=== PATIENT | female | born 1995 | race Caucasian/White ===

== ENCOUNTER → 2024-02-21 13:46 | Outpatient (CLI) | payer OTHER, SELFPAY | PROVIDERS: PCP Family Medicine; Visit Provider Family Medicine | DX: R31.9 Hematuria, unspecified (principal) | CPT/HCPCS: 87077; 87086 ==

== ENCOUNTER → 2024-04-28 15:12 | Outpatient (CLI) | payer OTHER, SELFPAY | PROVIDERS: PCP Family Medicine; Visit Provider Nurse Practitioner Family | DX: R30.0 Dysuria (principal) | CPT/HCPCS: 87077; 87086; 87186 ==

== ENCOUNTER → 2024-05-06 13:07 | Outpatient (CLI) | payer OTHER, SELFPAY ==
--- NOTE | 2024-05-06 13:08 | DI.US.S_ITS ---
PROCEDURE: US OB <= 14 WEEKS FETUS INDICATIONS: DATING OUTSIDE/PRIOR DATING DATA: Last menstrual period (LMP): 03/05/2024 LMP-based estimated date of delivery (NICO): 12/10/2024 First dating scan (date and location): 05/06/2024 Estimated date of delivery (NICO) from first dating scan: 12/09/2024 The calculations are made using the working NICO of 12/10/2024. TECHNIQUE: Real-time scanning was performed of the fetus and maternal pelvic organs, with image documentation. Endovaginal scanning was also performed to better visualize the fetus and maternal ovaries. COMPARISON: None. FINDINGS: Embryo: Single intrauterine gestational sac is seen with fetus and yolk sac seen. [place]-rump length measures 2.3 cm. Estimated gestational age is 9 weeks, 0 day. Heart rate: 180 beats per minute. Small perigestational hemorrhage is seen measures 1.0 x 0.8 x 0.3 cm in size. Maternal organs: Left ovary is not visualized. Probable small corpus luteum in right ovary is seen IMPRESSION: 1. Single live intrauterine gestation with fetus and yolk sac seen. heart rate is 180 beats per minute. Estimated gestational age based on current study is 9 weeks, 0 day. 2. Small perigestational hematoma as above. 3. Probable small corpus luteum in right ovary. Left ovary is not visualized. No adnexal mass. We strive to produce accurate, complete, and clear reports of imaging services. To assist us in improving patient care, this report was composed using standard report templates and voice recognition software. Therefore, it may contain abnormal punctuation, insertions and/or omissions. Occasional wrong-word or sound-alike substitutions may occur. Though we review the report and make efforts to correct it, we do recommend that the report be read carefully in proper context to recognize any text inaccuracies. Dictated by: Connor Montilla M.D. on 05/06/2024 at 18:12 Approved by: Connor Montilla M.D. on 05/06/2024 at 18:14
== END ==
PROVIDERS: PCP Family Medicine; Referring Provider Family Medicine; Visit Provider Family Medicine
DX: O46.8X1 Other antepartum hemorrhage, first trimester (principal); Z3A.09 9 weeks gestation of pregnancy
CPT/HCPCS: 76801; 76817

== ENCOUNTER → 2024-05-26 16:27 | Outpatient (CLI) | payer OTHER, SELFPAY ==
[2024-05-26 17:51] LABS: Natera Collection Specimen Collected
[2024-05-26 18:36] LABS: Appearance Urine UA CLEAR; Bilirubin Urine UA NEGATIVE (NEGATIVE); Color Urine UA YELLOW; Glucose Urine UA NEGATIVE (Negative); Ketones Urine UA NEGATIVE (NEGATIVE); Leukocyte Esterase Urine UA NEGATIVE (NEGATIVE); Nitrite Urine UA NEGATIVE (Negative); Occult Blood Urine UA TRACE-INTACT (Negative); Protein Urine UA NEGATIVE (Negative); Specific Gravity Urine UA <=1.005 (1.000-1.035); Urobilinogen Urine UA 0.2 E.U./dL (0.2)
== END ==
PROVIDERS: PCP Family Medicine; Referring Provider Family Medicine; Visit Provider Family Medicine
DX: Z34.00 Encounter for supervision of normal first pregnancy, unspecified trimester (principal)
CPT/HCPCS: 36415; 81003; 87086

== ENCOUNTER → 2024-06-24 13:19 | Outpatient (CLI) | payer OTHER, SELFPAY ==
[2024-06-24 17:13] LABS: Urine Chlamydia NOT DETECTED; Urine N gonorrhoeae NOT DETECTED
== END ==
PROVIDERS: PCP Family Medicine; Visit Provider Obstetrics & Gynecology
DX: Z34.02 Encounter for supervision of normal first pregnancy, second trimester (principal); Z3A.15 15 weeks gestation of pregnancy
CPT/HCPCS: 87491; 87591

== ENCOUNTER → 2024-06-24 13:58 | Outpatient (CLI) | payer OTHER, SELFPAY ==
[2024-06-24 14:23] LABS: Add Manual Diff / Slide Review NO; Basophils Absolute Auto 0 /uL (0-100); Basophils Percent Auto 0.3 % (0-2); Eosinophils Absolute Auto 100 /uL (0-450); Eosinophils Percent Auto 0.7 % (2-4); Hematocrit 36.9 % (36-46); Hemoglobin 12.4 g/dL (12.0-16.0); Lymphocytes Absolute Auto 2300 /uL (1100-4500); Mean Corpuscular HGB Conc 33.6 % (30-36); Mean Corpuscular Hemoglobin 31.4 PG (26-34); Mean Corpuscular Volume 93.3 fL (80-100); Monocytes Absolute Auto 800 /uL (0-900); Monocytes Percent Auto 5.6 % (3-14); Neutrophils Absolute Auto 10400 /uL (1500-7000); Neutrophils Percent Auto 76.4 % (50-75); Platelet Count 386 X10^3/uL (150-400); Red Blood Cell Count 3.95 X10^6/uL (4.0-5.2); Red Cell Distribution Width 13.4 % (11.6-14.8); White Blood Cell Count 13.6 X10^3/uL (4.5-11.0)
[2024-06-25 19:16] LABS: Hepatitis B Surface Antigen NEGATIVE s/c (NEGATIVE); Rubella Antibody IgG 5.9 IU/mL (>15)
[2024-06-25 19:32] LABS: HIV 1 & 2 Ab/Ag 4th Gen Combo NEGATIVE (NEGATIVE); Hep C Virus Ab w/Reflex Quant NEGATIVE s/c (NEGATIVE)
[2024-06-26 05:37] LABS: RPR Screen Non Reactive (Non Reactive)
[2024-06-26 08:13] LABS: Varicella IgG Antibody Reactive (Non Reactive)
== END ==
PROVIDERS: PCP Family Medicine; Referring Provider Obstetrics & Gynecology; Visit Provider Obstetrics & Gynecology
DX: Z34.02 Encounter for supervision of normal first pregnancy, second trimester (principal); Z3A.15 15 weeks gestation of pregnancy
CPT/HCPCS: 36415; 80055; 86787; 86803; 86850; 86900; 86901; 87389; 87491; 87591

== ENCOUNTER → 2024-07-23 13:54 | Outpatient (CLI) | payer OTHER, SELFPAY ==
--- NOTE | 2024-07-23 13:55 | DI.US.S_ITS ---
PROCEDURE: US OB >= 14 WEEKS FETUS INDICATIONS: 20 week anatomy OUTSIDE/PRIOR DATING DATA: Last menstrual period (LMP): 03/05/2024 LMP-based estimated date of delivery (NICO): 12/10/2024 First dating scan (date and location): 05/06/2024 Estimated date of delivery (NICO) from first dating scan: 12/09/2024 The calculations are made using the working NICO of 12/10/2024 TECHNIQUE: Real-time scanning was performed of the fetus, with image documentation and biometric measurements. Endovaginal scanning: Not performed COMPARISON: [facility], OB <= 14 WEEKS FETUS, 05/06/2024, 13:32. FINDINGS: General: A single living intrauterine gestation is present. Presentation: Transverse with head towards maternal left side Placenta: Placental position is posterior, without previa. Amniotic fluid index: 15.1 cm, normal range is 5-24 cm. Single deepest vertical pocket is 3.9 cm. heart rate: 150 beats per minute. Maternal cervical canal: Closed and measures 6.6 cm long. Normal lower limit is 2.5 cm. biometrics: Biparietal diameter: 4.8 cm, 20 weeks, 3 days. Head circumference: 17.8 cm, 20 weeks, 2 days. Abdominal circumference: 15.7 cm, 20 weeks, 6 days. Femur length: 3.1 cm, 19 weeks, 3 days. Clinically estimated gestational age: 20 weeks, 0 day Composite gestational age from present scan: 20 weeks, 2 days Estimated weight and percentile: 339 g, 58% Anatomic survey: Neuro: Ventricles are non-dilated at less than 10 mm. Cisterna magna is normal at 3-11 mm. Cerebellum is normal in size and morphology. Nuchal skin fold: Normal at less than 6 mm between 14-21 weeks gestational age. Face: Nose and lips, facial profile are normal. Spine: No evidence for spina bifida. Heart: 4-chambered heart is present, with normal ventricular outflow tracts. Diaphragm: Diaphragm is intact. Stomach: Left-sided stomach is present. Kidneys: No hydronephrosis. Normal is less than 5 mm in 2nd trimester, less than 7 mm in 3rd trimester. Cord: 3-vessel cord has orthotopic insertion. Bladder: Normal in size. Extremities: All 4 extremities identified. IMPRESSION: 1. Single live intrauterine gestation with fetus in transverse presentation. heart rate is 150 beats per minute. Normal UMER at 15.1 cm. Cervix is closed and measures 6.6 cm in length. 2. Normal growth. Estimated weight is at 58%. 3. Normal anatomic survey. We strive to produce accurate, complete, and clear reports of imaging services. To assist us in improving patient care, this report was composed using standard report templates and voice recognition software. Therefore, it may contain abnormal punctuation, insertions and/or omissions. Occasional wrong-word or sound-alike substitutions may occur. Though we review the report and make efforts to correct it, we do recommend that the report be read carefully in proper context to recognize any text inaccuracies. Dictated by: Connor Montilla M.D. on 07/23/2024 at 23:05 Approved by: Connor Montilla M.D. on 07/23/2024 at 23:07
== END ==
PROVIDERS: PCP Family Medicine; Referring Provider Obstetrics & Gynecology; Visit Provider Obstetrics & Gynecology
DX: Z34.02 Encounter for supervision of normal first pregnancy, second trimester (principal); Z3A.20 20 weeks gestation of pregnancy
CPT/HCPCS: 76811

== ENCOUNTER → 2024-07-25 14:41 | Outpatient (CLI) | payer OTHER, SELFPAY ==
[2024-07-29 20:10] LABS: Gest Age on Col Date 20.3 weeks (.); Gestational Age EDD (.); Insulin Dep Diabetes No (.); OSBR Risk 1IN 4664 (.); Results Report (.); Test Results *Screen Negative* (.)
== END ==
PROVIDERS: PCP Family Medicine; Referring Provider Obstetrics & Gynecology; Visit Provider Obstetrics & Gynecology
DX: Z34.02 Encounter for supervision of normal first pregnancy, second trimester (principal); Z3A.20 20 weeks gestation of pregnancy
CPT/HCPCS: 36415; 82105

== ENCOUNTER → 2024-09-03 10:46 | Outpatient (CLI) | payer OTHER, SELFPAY ==
[2024-09-03 13:46] LABS: Hematocrit 34.5 % (36-46); Hemoglobin 11.6 g/dL (12.0-16.0)
[2024-09-03 14:04] LABS: GTT (PREG) 1 Hour PP 50gm Dose 90 mg/dL (76-139)
== END ==
PROVIDERS: PCP Family Medicine; Referring Provider Obstetrics & Gynecology; Visit Provider Obstetrics & Gynecology
DX: Z34.02 Encounter for supervision of normal first pregnancy, second trimester (principal); Z3A.26 26 weeks gestation of pregnancy
CPT/HCPCS: 82950; 85014; 85018

== ENCOUNTER 2024-10-24 19:36 | Observation (INO) | payer OTHER, SELFPAY ==
[2024-10-24] MEDS: LACTATED RINGERS 1,000 ML 1000 ML IV (20:30)
--- NOTE | 2024-10-24 21:35 | P.TNLD_ITS ---
Visit Information Visit Information Date of evaluation: 10/24/24 Primary OB Provider: Brigette Alvarez On-call OB Provider: Marlee Peraza Reason for Evaluation: Yes non-stress test Comments/Additional reasons for admission: 29 yo G1 at 33w2d here for decreased movement. [facility] Medical History (Updated 04/07/24 @ 10:39 by Sheela Arcos, RN) Encounter for fertility planning Surgical History (Updated 04/07/24 @ 10:39 by Sheela Arcos RN) No pertinent past surgical history Family History (Updated 04/07/24 @ 10:43 by Sheela Arcos RN) Mother History of hysterectomy Ovarian cyst Cervical dysplasia Aunt Uterine cancer Aunt Breast cancer Lung cancer Non-smoker Uncle Colon cancer Father Family estrangement Social History marital status: number of children: 0 household members: spouse lives independently: Yes caregiver/support person: No housing: [facility] ([facility]) pets and animals: Yes (dogs) education level: college (some college) 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) current occupational exposures/hazards: No special jonah needs: No travel history: recent (domestic only) seatbelt use: always water heater temp set < 120 deg: Yes working smoke detector in home: Yes fire extinguisher in home: Yes carbon monox detector in home: Yes firearms in home: No do you feel safe at home: Yes Smoking Status: Never smoker second hand exposure: No alcohol intake: former (occasionally when not ) substance use type: does not use during the past year weight has: increased > 10 lbs well-balanced diet: about half the time daily servings fruits/ve-4 (on the low end) caffeine: Yes (aware of 200mg limit) Type(s) of exercise: walking Evaluation Evaluation Baseline heart rate: 150 Variability: Moderate (11-25) monitor accelerations: Present Monitor Decelerations: Absent Category of Tracing: Reactive Diagnosis, Plan/Disposition Plan/Disposition Plan: 29 yo G1 at 33w2d here for decreased movement. NST reactive. Some uterine irritability and maternal tachycardia - 1L fluid bolus given with adequate response. Recommend routine follow up next week. OB Disposition: home
== END 2024-10-24 21:45 | disposition home or self-care (01) ==
LOC: LABOR 19:39
PROVIDERS: Admitting Provider Student in an Organized Health Care Education/Training Program; PCP Family Medicine; Referring Provider Student in an Organized Health Care Education/Training Program; Visit Provider Student in an Organized Health Care Education/Training Program
DX: O36.8130 Decreased fetal movements, third trimester, not applicable or unspecified (principal); O99.891 Other specified diseases and conditions complicating pregnancy; R00.0 Tachycardia, unspecified; Z3A.33 33 weeks gestation of pregnancy
CPT/HCPCS: 59025; 59050; 96360; G0378; G0379

== ENCOUNTER → 2024-11-12 09:23 | Outpatient (CLI) | payer OTHER, SELFPAY ==
[2024-11-13 14:18] LABS: Strep Grp B PCR NEG for Grp B Strep
== END ==
PROVIDERS: PCP Family Medicine; Visit Provider Obstetrics & Gynecology
DX: Z34.03 Encounter for supervision of normal first pregnancy, third trimester (principal); Z3A.36 36 weeks gestation of pregnancy
CPT/HCPCS: 87653

== ENCOUNTER 2024-12-11 07:22 | Outpatient (CLI) | payer OTHER, SELFPAY ==
--- NOTE | 2024-12-11 08:39 | PM.OBTRLD ---
Visit Information Visit Information Date of evaluation: 12/11/24 Primary OB Provider: Brigette Alvarez On-call OB Provider: Marlee Peraza Comments/Additional reasons for admission: Patient is a 29 yo G1 at 40w1d here for labor check. She reports contractions overnight without much sleep. No LOF or vaginal bleeding. Good movement. Vital Signs Vital Signs: BP 109/74, pulse 100, temp 36.5 PFSH Medical History (Updated 04/07/24 @ 10:39 by Sheela Arcos, RN) Encounter for fertility planning Surgical History (Updated 04/07/24 @ 10:39 by Sheela Arcos, RN) No pertinent past surgical history Family History (Updated 04/07/24 @ 10:43 by Sheela Arcos RN) Mother History of hysterectomy Ovarian cyst Cervical dysplasia Aunt Uterine cancer Aunt Breast cancer Lung cancer Non-smoker Uncle Colon cancer Father Family estrangement Social History marital status: number of children: 0 household members: spouse lives independently: Yes caregiver/support person: No [facility]) pets and animals: Yes (dogs) education level: college (some college) 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) current occupational exposures/hazards: No special jonah needs: No travel history: recent (domestic only) seatbelt use: always water heater temp set < 120 deg: Yes working smoke detector in home: Yes fire extinguisher in home: Yes carbon monox detector in home: Yes firearms in home: No do you feel safe at home: Yes second hand exposure: No alcohol intake: former (occasionally when not ) substance use type: does not use during the past year weight has: increased > 10 lbs well-balanced diet: about half the time daily servings fruits/ve-4 (on the low end) caffeine: Yes (aware of 200mg limit) Type(s) of exercise: walking Evaluation Evaluation Baseline heart rate: 120 Variability: Average (6-10) monitor accelerations: Present Monitor Decelerations: Absent Contraction Frequency (minutes): 7 Uterine Contraction Intensity: Mild Category of Tracing: Reactive Status: Category l Cervical dilation (cm): 0.5 Cervical effacement (%): 0 Diagnosis, Plan/Disposition Plan/Disposition Plan: 29 yo G1 at 40w1d here with early labor. SVE 0.5/thick. Desires therapeutic rest. -5mg morphine -25 mg hydroxyzine -return to L&D when contractions worsen OB Disposition: home
[2024-12-11] MEDS: ZOLPIDEM 5 MG TABLET PO (08:54)
[2024-12-11] MEDS: hydrOXYzine 50 MG/ML INJ 25 MG IM (08:54)
== END 2024-12-11 08:55 | disposition home or self-care (01) ==
LOC: LABOR 08:54 → OB 13:58
PROVIDERS: PCP Family Medicine; Referring Provider Obstetrics & Gynecology; Visit Provider Obstetrics & Gynecology
DX: Z36.9 Encounter for antenatal screening, unspecified (principal)
CPT/HCPCS: 59025; 96372; G0378; G0379; J3410

== ENCOUNTER 2024-12-12 08:52 | Outpatient (CLI) | payer OTHER, SELFPAY | END 2024-12-12 09:32 | disposition home or self-care (01) | LOC: OB 10:00 | PROVIDERS: PCP Family Medicine; Referring Provider Obstetrics & Gynecology; Visit Provider Obstetrics & Gynecology | DX: Z36.9 Encounter for antenatal screening, unspecified (principal) | CPT/HCPCS: 59025; G0378; G0379 ==

== ENCOUNTER 2024-12-13 04:57 | Observation (INO) | payer OTHER, SELFPAY ==
[2024-12-13] MEDS: MORPHINE 4 MG/ML INJ 2.5 MG IM (07:28)
[2024-12-13] MEDS: PROMETHAZINE 25 MG TABLET PO (07:28)
--- NOTE | 2024-12-13 07:35 | PM.OBTRLD ---
Visit Information Visit Information Date of evaluation: 12/13/24 Primary OB Provider: Brigette Alvarez On-call OB Provider: Jaki Barcenas Reason for Evaluation: Yes rule out labor Comments/Additional reasons for admission: 29 yo G1 presenting at 40w3d with regular contractions. complicated by hx of psoriatic arthritis. She is celeste every 5 min and is feeling exhaysted and overwhelmed, feeling that she needs to get some sleep to be able to cope. She is feeling baby move. Contractions are getting stronger. [facility] Medical History (Updated 04/07/24 @ 10:39 by Sheela Arcos, RN) Encounter for fertility planning Surgical History (Updated 04/07/24 @ 10:39 by Sheela Arcos RN) No pertinent past surgical history Family History (Updated 04/07/24 @ 10:43 by Sheela Arcos RN) Mother History of hysterectomy Ovarian cyst Cervical dysplasia Aunt Uterine cancer Aunt Breast cancer Lung cancer Non-smoker Uncle Colon cancer Father Family estrangement Social History marital status: number of children: 0 household members: spouse lives independently: Yes caregiver/support person: No housing: condominium (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 occupational exposures/hazards: No special jonah needs: No travel history: recent (domestic only) seatbelt use: always water heater temp set < 120 deg: Yes working smoke detector in home: Yes fire extinguisher in home: Yes carbon monox detector in home: Yes firearms in home: No do you feel safe at home: Yes second hand exposure: No alcohol intake: former (occasionally when not ) substance use type: does not use during the past year weight has: increased > 10 lbs well-balanced diet: about half the time daily servings fruits/ve-4 (on the low end) caffeine: Yes (aware of 200mg limit) Type(s) of exercise: walking Review of Systems Review of Systems Narrative: + movement + contractions - LOF Exam Narrative Exam Narrative: GEN: Healthy appearing, well-developed, Breathing through contractions PSYCH: Good Judgment. AOx3. Normal memory, mood, and affect HEENT: -Head: NC/AT -Eyes: No discharge or redness CV: warm and well perfused LUNGS: breathing comfortably on RA SKIN: Warm, well perfused. No skin rashes or abnormal lesions MSK:No deformities NEURO: No focal deficits Evaluation Evaluation Baseline heart rate: 150 Variability: Moderate (11-25) monitor accelerations: Present Monitor Decelerations: Absent Contraction Frequency (minutes): 3 Uterine Contraction Intensity: Moderate Category of Tracing: Reactive Status: Category l Cervical dilation (cm): 2 Cervical effacement (%): 90 station: -2 Diagnosis, Plan/Disposition Plan/Disposition Plan: 29 yo G1 presenting at 40w3d with regular contractions. Initial SVE 2/90/-2. FHT reassuring, Cat 1. Walked for 2 hours, SVE unchanged. Given morphine/phergan, watched for 30 min, FHt persistently reassuring. Pt d/c home. Scheduled for eIOL tomorrow evening. return precautions reviewed OB Disposition: home
== END 2024-12-13 08:15 | disposition home or self-care (01) ==
LOC: LABOR 05:00
PROVIDERS: Admitting Provider Family Medicine; PCP Family Medicine; Referring Provider Family Medicine; Visit Provider Family Medicine
DX: O26.813 Pregnancy related exhaustion and fatigue, third trimester (principal); Z3A.40 40 weeks gestation of pregnancy; L40.50 Arthropathic psoriasis, unspecified; Z36.9 Encounter for antenatal screening, unspecified
CPT/HCPCS: 59025; 59050; 96372; G0378; G0379; J2270

== ENCOUNTER 2024-12-13 12:00 | Inpatient (IN) | payer OTHER, SELFPAY ==
[2024-12-13 12:22] VITALS: BP 119/72
[2024-12-13] MEDS: LACTATED RINGERS 1,000 ML 100 ML IV ×3 (12:50→19:51)
[2024-12-13 13:02] LABS: Add Manual Diff / Slide Review NO; Basophils Absolute Auto 100 /uL (0-100); Basophils Percent Auto 0.4 % (0-2); Eosinophils Absolute Auto 0 /uL (0-450); Eosinophils Percent Auto 0.3 % (2-4); Hematocrit 36.9 % (36-46); Hemoglobin 12.3 g/dL (12.0-16.0); Lymphocytes Absolute Auto 2000 /uL (1100-4500); Lymphocytes Percent Auto 13.4 % (25-40); Mean Corpuscular HGB Conc 33.4 % (30-36); Mean Corpuscular Hemoglobin 29.5 PG (26-34); Mean Corpuscular Volume 88.3 fL (80-100); Monocytes Absolute Auto 800 /uL (0-900); Monocytes Percent Auto 5.5 % (3-14); Neutrophils Absolute Auto 12000 /uL (1500-7000); Neutrophils Percent Auto 80.4 % (50-75); Platelet Count 300 X10^3/uL (150-400); Red Blood Cell Count 4.17 X10^6/uL (4.0-5.2); Red Cell Distribution Width 15.2 % (11.6-14.8); White Blood Cell Count 14.9 X10^3/uL (4.5-11.0)
--- NOTE | 2024-12-13 13:55 | PM.AN.REGBLK ---
Regional Block Pre-procedure Procedure: Continuous Lumbar Epidural for L&D Attending OB provider: Jaki Barcenas PMH/ROS narrative: , 40 3/7, spontaneous labor. Negative ROS. PSH/Anesthesia history narrative: None Exam narrative: Mall 2, good dentition ASA Class: II Labs: Hct 36.9 % (36-46) 12/13/24 12:50 Plt Count 300 X10^3/uL (150-400) 12/13/24 12:50 Medications: Current Medications Generic Name Dose Route Start Last Admin Trade Name Freq PRN Reason Stop Dose Admin Carboprost Tromethamine 250 mcg 12/13/24 12:38 Carboprost 250 Mcg/Ml Ampul IM Q90M PRN Bleeding Diphenhydramine HCl 25 mg 12/13/24 13:52 Diphenhydramine 50 Mg/Ml Vial IV Q10M PRN Pruritis Ephedrine Sulfate 10 mg 12/13/24 13:52 Ephedrine 50 Mg/Ml Vial IV Q5M PRN Blood pressure decrease more than 20% of baseline. Tranexamic Acid 1,000 mg/ 100 mls @ 600 mls/hr 12/13/24 12:38 Sodium Chloride IV NOW PRN Bleeding Lactated Ringer's 1,000 mls @ 100 mls/hr 12/13/24 12:45 Lactated Ringers IV 12/13/24 22:44 CONT JEROME Oxytocin/Lactated Ringer's 30 unit in 500 mls @ 200 mls/hr 12/13/24 12:38 Oxytocin Premix IV CONT PRN Bleeding Protocol FENT 2MCG/ML BUPIV 0.125% EPI 200 mcg in 100 mls @ 8 mls/hr 12/13/24 14:00 Fentanyl/Bupiv/Ns 2mcg/Ml - 0.125% EPIDURAL CONT JEROME Lidocaine HCl 20 ml 12/13/24 12:38 Lidocaine 1% 20 Ml INJ INTRA-OP PRN Post Delivery Methylergonovine Maleate 0.2 mg 12/13/24 12:38 Methylergonovine 0.2 Mg Tablet PO Q6HR PRN Heavy Bleeding Methylergonovine Maleate 0.2 mg 12/13/24 12:38 Methylergonovine 0.2 Mg/Ml Vial IM NOW PRN Bleeding Mineral Oil 30 ml 12/13/24 12:38 Mineral Oil 30 Ml Udc TOP PRN PRN Version Misoprostol 400 mcg 12/13/24 12:38 Misoprostol 200 Mcg Tablet SL NOW PRN Bleeding Misoprostol 800 mcg 12/13/24 12:38 Misoprostol 200 Mcg Tablet MT NOW PRN Bleeding Nalbuphine HCl 2.5 mg 12/13/24 13:52 Nalbuphine 20 Mg/Ml Ampul IV Q10M PRN Pruritis Naloxone HCl 0.2 mg 12/13/24 12:38 Naloxone 0.4 Mg/Ml Vial IV Q2MIN PRN Opiate Reversal Oxytocin 10 unit 12/13/24 12:38 Oxytocin 10 Unit/Ml Vial IM NOW PRN Bleeding Allergies: Allergies Allergy/AdvReac Type Severity Reaction Status Date / Time griseofulvin Allergy Severe Rash Verified 12/12/24 08:32 minocycline Allergy Severe Anaphylaxis Verified 12/12/24 08:32 Procedure Insertion date: 12/13/24 Insertion time: 13:20 Prep/Local: 1% lidocaine (chlorhex skin prep, dry x 3 min) Interspace: L4-5 Patient position: sitting Needle: 17 gauge Tuohy Loss of resistance with: saline SCOTT at (cm): 8 Catheter placed at SKIN (cm): 15 Catheter in SPACE (cm): 7 Sensory level: T10 Insertion: No CSF, No Blood, No Paresthesia with insertion, No Paresthesia with injection and No Test dose reaction Initial Medications TEST DOSE time: 13:35 BOLUS DOSE time: 13:44 BOLUS DOSE (mL): 5 BOLUS DOSE med: other (pump solution) Infusion Initial rate (mL/hr): 8 Post-procedure Anesthesia date START: 12/13/24 Anesthesia time START: 13:20
[2024-12-13] MEDS: ePHEDrine 50 MG/ML VIAL 10 MG IV (14:26)
--- NOTE | 2024-12-13 18:11 | PM.OBHP.IH.1 ---
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 complicated by hx of psoriatic arthritis. She is celeste every 5 min, more painful than when she was seen in triage this AM. no LOF. SVE on arrival 3.5/90/-3. care: good care Dating criteria OB: LMP confirmed by 1st trimester US Ultrasounds: normal 1st trimester US and normal mid trimester US Obstetrical complications: none Medical complications OB: immunologic (psoriatic arthritis) Preadmission Labs Last OB Lab Results: Blood Type O Positive 12/13/24 13:06 Antibody Screen Negative 12/13/24 13:06 Hct 36.9 % (36-46) 12/13/24 12:50 Hgb 12.3 g/dL (12.0-16.0) 12/13/24 12:50 Hep Bs Antigen Negative s/c (NEGATIVE) 06/24/24 14:04 Hepatitis C Antibody Negative s/c (NEGATIVE) 06/24/24 14:04 Rubella Antibody 5.9 IU/mL (>15) L 06/24/24 14:04 VZV IgG Antibody Reactive (Non Reactive) 06/24/24 14:04 Glucose 1 Hr 50 gm 90 mg/dL (76-139) 09/03/24 11:59 Group B Strep (PCR) Neg for grp b strep 11/12/24 09:23 Glucose Tolerance Testin hr (90) -: Chlamydia screen: negative, Gonorrhea screen: negative and Urine: negative -: PAP smear: Normal Genetic Screens: Quad screen: Normal External Labs -: Urine: negative Evaluation Evaluation Baseline heart rate: 150 Variability: Moderate (11-25) monitor accelerations: Present Monitor Decelerations: Absent Contraction Frequency (minutes): 3 Uterine Contraction Intensity: Mild Category of Tracing: Reactive Status: Category l Dilation (cm): 5 Effacement (%): 80 Dilation: >/=5 cm Effacement: >/=80% station: -3 Position of cervix: anterior Consistency: soft Cabrera score: 10 PFSH Medical History (Updated 04/07/24 @ 10:39 by Sheela Arcos, RN) Encounter for fertility planning Surgical History (Updated 04/07/24 @ 10:39 by Sheela Arcos RN) No pertinent past surgical history Family History (Updated 04/07/24 @ 10:43 by Sheela Arcos RN) Mother History of hysterectomy Ovarian cyst Cervical dysplasia Aunt Uterine cancer Aunt Breast cancer Lung cancer Non-smoker Uncle Colon cancer Father Family estrangement Social History marital status: number of children: 0 household members: spouse lives independently: Yes caregiver/support person: No housing: condominium ([facility]) pets and animals: Yes (dogs) education level: college (some college) 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) current occupational exposures/hazards: No special jonah needs: No travel history: recent (domestic only) seatbelt use: always water heater temp set < 120 deg: Yes working smoke detector in home: Yes fire extinguisher in home: Yes carbon monox detector in home: Yes firearms in home: No do you feel safe at home: Yes Smoking Status: Never smoker second hand exposure: No alcohol intake: former (occasionally when not ) substance use type: does not use during the past year weight has: increased > 10 lbs well-balanced diet: about half the time daily servings fruits/ve-4 (on the low end) caffeine: Yes (aware of 200mg limit) Type(s) of exercise: walking Meds Home Medications and Allergies Home Medications Medication Instructions Recorded Confirmed Type vit 168-iron 27 mg-folic See Rx Instructions .Route .COMPLEX 05/26/24 12/13/24 History acid 800 mcg-omega3 235 mg capsule (One-A-Day -1) Allergies Allergy/AdvReac Type Severity Reaction Status Date / Time griseofulvin Allergy Severe Rash Verified 12/12/24 08:32 minocycline Allergy Severe Anaphylaxis Verified 12/12/24 08:32 Review of Systems Review of Systems Narrative: - LOF + contractions + movement OB Exam Vital signs Blood Pressure: 103/57 Pulse Rate: 99 Narrative Exam Narrative: GEN: Healthy appearing, well-developed, NAD. Comfortable with epidural PSYCH: Good Judgment. AOx3. Normal memory, mood, and affect HEENT: -Head: NC/AT -Eyes: No discharge or redness CV: warm and well perfused LUNGS: breathing comfortably on RA SKIN: Warm, well perfused. No skin rashes or abnormal lesions MSK:Normal gait. No deformities NEURO: No focal deficits Objective Labs 12/13/24 12:50 Labs: Laboratory Results - last 24 hr 12/13/24 12/13/24 12:50 13:06 WBC 14.9 H RBC 4.17 Hgb 12.3 Hct 36.9 MCV 88.3 MCH 29.5 MCHC 33.4 RDW 15.2 H Plt Count 300 Neut % (Auto) 80.4 H Lymph % (Auto) 13.4 L [place] % (Auto) 5.5 Eos % (Auto) 0.3 L Baso % (Auto) 0.4 Neut # (Auto) 29683 H Lymph # (Auto) 2000 [place] # (Auto) 800 Eos # (Auto) 0 Baso # (Auto) 100 Blood Type O Positive Antibody Screen Negative Assessment and Plan Assessment and Plan Assessment and Plan narrative: 29 yo G1 presenting at 40w3d with regular contractions. complicated by hx of psoriatic arthritis. #SHYANN - admit to LD - TS, CBC - epidural in place - expectant management - AROM with thin mec at 18:05, FHT reassuring after - continuous monitoring, currently cat I - GBS negative Time-Based Coding :: [TOTAL MINUTES] spent with patient and on the chart (including review of chart, obtaining history, exam, reviewing outside data, placing orders, documenting exam and treatment plan, and counseling patient) on [DATE].
[2024-12-13 18:28] VITALS: BP 103/57; PULSE 99
[2024-12-13] MEDS: FENT 2MCG/ML BUPIV 0.125% EPI 200 MCG/100 ML PLAST..BAG 10 MCG EPIDURAL (20:13)
[2024-12-13] MEDS: ONDANSETRON 4 MG/2 ML INJ IV (22:51)
[2024-12-13] MEDS: diphenhydrAMINE 50 MG/ML VIAL 25 MG IV (22:51)
[2024-12-14] MEDS: OXYTOCIN PREMIX 30 UNIT/500 ML PLAST..BAG IV (00:01)
[2024-12-14] MEDS: FENT 2MCG/ML BUPIV 0.125% EPI 200 MCG/100 ML PLAST..BAG 10 MCG EPIDURAL (01:55)
[2024-12-14] MEDS: diphenhydrAMINE 50 MG/ML VIAL 25 MG IV ×2 (04:13→05:01)
[2024-12-14] MEDS: LACTATED RINGERS 1,000 ML 100 ML IV ×2 (05:51→15:35)
--- NOTE | 2024-12-14 06:46 | PM.OBPNLAB ---
Date/Time Date Patient Seen: 12/14/24 Time Patient Seen: 06:00 Pain Control Pain control: epidural Comments: Poor pain control despite epidural Pt requesting CS, feeling as though she is unable to tolerate any more discomfort, feeling significant pressure and pain despite epidural Attempted to push through ant lip and unable to reduce Pelvic Exam Dilation (cm): 9 Effacement (%): 90 station: -1 Amniotic membrane status: Ruptured Comments: Thin mec stained fluid Think anterior lip of cervix present, non-reducible malpresentation present, suspect ROP + asynclinitic, unable to rotate. 0 station. Minimal molding/caput present Contractions Contractions on admission: regular Monitor mode: External Pitocin rate (mU/min): 14 Contraction frequency (min): 2 Contraction duration (min): 1 Contraction pattern: Regular Contraction intensity: Mild Status status: Category l Heart Rate Baseline: 150 Monitor Accelerations: Present Monitor Decelerations: Absent Monitor Variability: Moderate Assessment and Plan Assessment: active labor Plan: Comments: 29 yo G at 40w4d admitted with SHYANN, progressing overnight but now stalled at 9cm with a thick anterior lip. Mom requesting at this time. Pt not tolerating pain despite epidural in place which has been adjusted multiple times. Discussed options of waiting another hour to see if dilation continues and pt declines. She notes exhaustion and discomfort and does not feel able to continue at this time. Indications: malpresentation and maternal request/maternal exhaustion - Ancef for surgical ppx - Azithromycin due to ROM - Vag prep + Abd prep - Starting Hgb 12.3 - PPH meds in the room - Epidural just removed per anesthesia, planning to attempt spinal - Consent for signed - RT in room for delivery due to unscheduled CS and thn mec - GBs negative - O+ blood type counseling: It was explained to the patient that a section is a surgery to deliver the baby through an incision in the abdominal wall and uterus.? All procedures can be associated with risk and unforeseen complications, which can be immediate or delayed.? Risks and complications of section include, but are not limited to:? infection of the uterus, pelvic organs, or skin; inadvertent injury to internal organs such as the bowel, bladder, or possibly even the baby; blood loss, transfusion, and/or life-threatening hemorrhage requiring hysterectomy; blood clots in the legs, pelvic organs, or lungs; adverse reaction to medications or anesthesia during surgery; development of placenta accreta spectrum in a subsequent ; and increased risk of section in a subsequent .
[2024-12-14] MEDS: CEFAZOLIN 2 GM/100 ML PREMIX 100 ML IV (08:04)
[2024-12-14] MEDS: AZITHROMYCIN 500 MG in DEXTROSE 5% IN WATER 250 ML 250 MG IV (08:07)
--- NOTE | 2024-12-14 08:32 | SUR.OPER ---
MODERATE MACONIUM PER SURGEON
--- NOTE | 2024-12-14 08:32 | SUR.OPER ---
0822 BABY GIRL BORN
--- NOTE | 2024-12-14 08:33 | SUR.OPER ---
SCORES PER OB RN 8 AND 9
--- NOTE | 2024-12-14 08:46 | SUR.OPER ---
FHT UPON ARRIVAL TO OR 150 PER OB RN
[2024-12-14 09:12] VITALS: BP 114/78; PULSE 116; RESP 21; TEMP 36.4; O2SAT 98
--- NOTE | 2024-12-14 09:16 | PM.OBCS.1 ---
Operative Date/Time/Diagnoses Date of procedure: 12/14/24 Time of procedure: 08:17 Pre-op diagnosis: SIUP, Maternal exhaustion, malpresentation Post-op diagnosis: same Procedure & Clinicians Procedure: Primary LTCS Same procedure as scheduled: Yes Indications: Maternal exhaustion/Maternal request, malpresentation Surgeon: Jaki Barcenas Click Yes if Unassisted: No Medical Assistant Dermatology: Rowdy Clay Reason for Medical Assistant Dermatology: Medical Assistant Dermatology required for the safe, effective, and timely completion of this surgery. The sales office assistant was necessary to retract upon entry into the abdomen and uterus. Assisted with delivery of the with fundal pressure. Assisted with closure with retraction, holding suture, and closure of the contralateral fascia. Anesthesia Type: Spinal Operative Notes Findings: Normal uterus, ovaries, and tubes Closure Type: primary Specimen(s): cord blood Intraoperative meds administered: Duramorph, Ketorolac and Pitocin Applied: Catheter Estimated Blood Loss (mL): 600 Blood products transfused: none Procedure in detail: OPERATIVE COURSE: The patient was taken to the operating room where spinal anesthesia was placed. ANCEF was given prior to start time for surgical ppx and Azithromycin due to ROM. She was then prepared and draped in the normal sterile fashion in the dorsal supine position with a leftward tilt. Vaginal prep was performed as well due to ROM pior to surgery. Anesthesia was tested and found to be adequate. A Pfannensteil skin incision was then made with the scalpel and carried through to the underlying layer of fascia with the scalpel. The fascia was incised in the midline and the incision extended laterally with the Tomas scissors. The superior aspect of the fascial incision was then grasped with Khushboo clamps, elevated with the help of the rn first assistant, and the underlying rectus muscles dissected off bluntly and sharply where needed. Attention was then turned to the inferior aspect of the incision which, in a similar fashion, was grasped, tented up with Khushboo clamps, and the rectus muscle dissected off bluntly and sharply with Tomas scissors. The rectus muscles were then in the midline, and the peritoneum was identified and entered bluntly. The peritoneal incision was then extended with good visualization of the bladder. Retraction was provided by the rn first assistant. The bladder blade was then inserted and the vesicouterine peritoneum identified, no bladder flap was formed. The bladder blade was then reinserted and the lower uterine segment incised in a transverse fashion with the scalpel, with the rn first assistant providing suction. The uterine incision was then extended superolaterally by pulling superolaterally on both sides. Upon entry to uterus, thick meconium stained fluid was expressed. The bladder blade was removed the 's head was flexed out of ROP position and delivered atraumatically, with fundal pressure by the rn first assistant. The nose and mouth were suctioned with bulb suction and the cord was clamped and cut. The nose and mouth were suctioned with bulb suction and the cord was clamped and cut after a 60 second delay. The infant was handed off to the waiting nursing staff. Cord blood was collected. Time of delivery was 08:22. APGARS were 8 and 9 at one and five minutes respectively. The placenta was then delivered with gentle cord traction. The uterus was then exteriorized and cleared of all clots and debris. The uterine incision was repaired with 0 Vicryl in a running, locked fashion. A second layer of the same suture was used to obtain excellent hemostasis. The uterus was returned to the abdomen. The gutters were cleared of all clots. Hysterotomy was investigated and found to be hemostatic. The fascia was reapproximated with 0 Vicryl in a running fashion. The subcutaneous tissue was reapproximated with 3-0 vicryl. The skin was closed with 4-0 monocryl. The rn first assistant helped with retraction during closures. At facial closure, pts blood pressures were slightly hypotensive to 90s/50s so IVF were increased and 2nd IV was placed. Pt received antiemetics per anesthesia but was otherwise feeling well at the completion of the case (see Anesthesia documentation for further details) SPONGE AND NEEDLE COUNTS: Correct x3. DRESSING: Aquacel ANTICOAGULATION: SCDs applied prior to Surgery Preop antibiotics given (see MAR). The patient was taken to recovery room having tolerated procedure well. Complications: none Post-operative Condition: stable Disposition: PACU Aftercare: routine postop
[2024-12-14 09:17] VITALS: BP 144/84; PULSE 116; RESP 20; O2SAT 98
[2024-12-14 09:22] VITALS: BP 133/95; PULSE 115; RESP 21; O2SAT 100
[2024-12-14 09:32] VITALS: BP 139/94; PULSE 109; RESP 21; TEMP 36.6; O2SAT 98
[2024-12-14] MEDS: ACETAMINOPHEN 325 MG TABLET 650 MG PO ×3 (10:29→22:07)
[2024-12-14] MEDS: KETOROLAC 30 MG/ML VIAL IV ×2 (15:35→22:08)
[2024-12-14] MEDS: OXYCODONE IR 5 MG TABLET PO (16:32)
[2024-12-15] MEDS: KETOROLAC 30 MG/ML VIAL IV (05:06)
[2024-12-15] MEDS: ACETAMINOPHEN 325 MG TABLET 650 MG PO ×3 (05:06→20:32)
--- NOTE | 2024-12-15 07:06 | P.PNOB_ITS ---
Subjective - OB Subjective Patient comments: no complaints [place] baby status: doing well feeding status: exclusively breast feeding Narrative: doing well, has voided. Pain well controlled, somewhat higher with ambulating. some incision pain. Breast feeding going well Date Patient Seen: 12/15/24 Time Patient Seen: 07:06 Exam Vital Signs (past 8 hours): Oxygen Delivery Method Room Air Narrative Exam Narrative: GEN: Healthy appearing, well-developed, NAD. PSYCH: Good Judgment. AOx3. Normal memory, mood, and affect HEENT: -Head: NC/AT -Eyes: No discharge or redness CV: warm and well perfused LUNGS: breathing comfortably on RA SKIN: Warm, well perfused. No skin rashes or abnormal lesions ABD: fundus firm below umbilicus, appropriate post-op tenderness MSK: No deformities NEURO:No focal deficits Objective Labs 12/13/24 12:50 Assessment & Plan Plan day: 1 plan OB: routine postop care Comments: 29 yo G1 now POD 1 following primary LTCS due to maternal request and malpresentation, doing well postop - Pain well controlled on oral medications, continue tylenol, ibuprofen and PRN oxycodone - Bleeding minimal - has voided - ambulating without difficulty - f/up for f/up at 6week PP visit Time-Based Coding :: [TOTAL MINUTES] spent with patient and on the chart (including review of chart, obtaining history, exam, reviewing outside data, placing orders, documenting exam and treatment plan, and counseling patient) on [DATE].
[2024-12-15 08:30] LABS: Add Manual Diff / Slide Review NO; Basophils Absolute Auto 0 /uL (0-100); Basophils Percent Auto 0.2 % (0-2); Eosinophils Absolute Auto 100 /uL (0-450); Eosinophils Percent Auto 0.4 % (2-4); Hematocrit 28.6 % (36-46); Hemoglobin 9.1 g/dL (12.0-16.0); Lymphocytes Absolute Auto 3900 /uL (1100-4500); Lymphocytes Percent Auto 13.1 % (25-40); Mean Corpuscular HGB Conc 31.8 % (30-36); Mean Corpuscular Hemoglobin 28.8 PG (26-34); Mean Corpuscular Volume 90.4 fL (80-100); Monocytes Absolute Auto 1900 /uL (0-900); Monocytes Percent Auto 6.2 % (3-14); Neutrophils Absolute Auto 24100 /uL (1500-7000); Neutrophils Percent Auto 80.1 % (50-75); Platelet Count 275 X10^3/uL (150-400); Red Blood Cell Count 3.17 X10^6/uL (4.0-5.2); Red Cell Distribution Width 15.4 % (11.6-14.8)
[2024-12-15] MEDS: PRENATAL VIT,CALC/IRON/FOLIC 1 TABLET 1 TAB PO (09:13)
[2024-12-15] MEDS: IBUPROFEN 600 MG TABLET PO ×2 (12:07→20:33)
[2024-12-15] MEDS: DOCUSATE 100 MG CAPSULE PO (12:07)
[2024-12-15 20:40] VITALS: BP 139/94; PULSE 109; RESP 21; TEMP 36.6
[2024-12-16] MEDS: IBUPROFEN 600 MG TABLET PO (02:37)
[2024-12-16] MEDS: ACETAMINOPHEN 325 MG TABLET 650 MG PO (02:38)
--- NOTE | 2024-12-16 07:52 | P.DS_ITS ---
Discharge Providers Provider Date of admission: 12/13/24 12:00 Discharge Date: 12/16/24 Primary care physician: Abimbola Gao MD Consults: 12/13/24 12:38 Consult to Anesthesiology Urgent Comment: Consulting Provider: Anesthesiologist Reason for consultation: Epidural 12/14/24 07:36 Consult to Heavy Forging Machine Operator Routine Comment: 12/14/24 09:35 Consult to Heavy Forging Machine Operator Routine Comment: 12/14/24 10:01 Consult to Heavy Forging Machine Operator Routine Comment: Discharge provider: Brigette Alvarez MD Summary Hospital Course Date Patient Seen: 12/16/24 Time Patient Seen: 07:30 Diagnoses: s/p 1LTCS of LBFI, arrest of labor at 9cm Hospital Course: 29yo G1 presented to facility in active term labor at 40w3d, initial SVE 3-4cm with regular contractions. Pt received epidural analgesia and AROM was performed with return of meconium stained fluid, intermittent Cat 2 tracing that responded appropriate to routine intrauterine resuscitation measures. Cervical dilation arrested to 9cm secondary to asynclitism and pt requested primary CS. Pt underwent procedure without complication, delivery of LBFI in OP/asynclitic presentation with significant caput/molding noted at time of delivery. course was uncomplicated and patient was discharged to home on POD2 meeting all discharge milestones. exclusively. Planned one week incision check with Dr. Barcenas, routine 4wks with Dr. Alvarez. Routine precautions reviewed including counseling re: risk of escape ovulation/avoidance of short interval conception. Peripartum Data Infant Delivery Method: Section [place] 1: Gender: Female Disposition of : home Discharge Diagnosis (1) delivery delivered: Status: Acute Status at Discharge Cognitive/behavioral status at discharge: oriented Functional status at discharge: independent ambulation Overall status at discharge: patient is back to baseline Time Spent with Patient Time attestation: Total time spent providing and/or coordinating discharge services: Time spent: Less than 30 minutes Specific discharge activities: no heavy lifting >10lbs (baby + carrier) Objective Labs 12/15/24 08:22 Labs: Laboratory Results - last 24 hr 12/15/24 08:22 WBC 30.0 H D RBC 3.17 L Hgb 9.1 L Hct 28.6 L MCV 90.4 MCH 28.8 MCHC 31.8 RDW 15.4 H Plt Count 275 Neut % (Auto) 80.1 H Lymph % (Auto) 13.1 L Potter % (Auto) 6.2 Eos % (Auto) 0.4 L Baso % (Auto) 0.2 Neut # (Auto) 46558 H Lymph # (Auto) 3900 Potter # (Auto) 1900 H Eos # (Auto) 100 Baso # (Auto) 0 Exam Vital Signs (past 8 hours): Oxygen Delivery Method Room Air maternal VS reviewed in OBIX, wnl Const General: cooperative, healthy appearing, comfortable and well developed Nutritional Appearance: average body habitus Orientation: alert, awake and oriented x3 Limitations: mental status not altered Resp Effort & Inspection: normal respiratory effort and able to speak in complete sentences GI Other: fundus firm << umb, aquacel in place c/d/i Other: deferred Back/Spine/Pelvis Back: normal to inspection Skin General: no rashes or lesions noted Neuro General: patient alert, patient awake and patient oriented x3 Extrem General: normal to inspection and other (+1 pedal edema BLE ) Psych Mental Status: mental status grossly normal Judgment: judgment good Discharge Plan Discharge Plan Patient Disposition: Home Provider Discharge Comment: NO heavy lifting >10lbs (baby + carrier) Discharge orders & Medications Prescriptions: New acetaminophen 325 mg Tablet 650 mg PO Q6H Qty: 30 0RF ibuprofen 600 mg Tablet 600 mg PO Q6H Qty: 30 0RF oxycodone 5 mg Tablet 5 mg PO Q4H PRN (Reason: Pain, Moderate (4-6)) Qty: 10 0RF Purelan Cream 1 applic topical PRN PRN (Reason: Skin protectant) Qty: 7 3RF sennosides [senna] 8.6 mg tablet 8.6 mg PO BID PRN (Reason: constipation) Qty: 30 0RF Continued One-A-Day -1 27 mg iron- 800 mcg-235 mg capsule See Rx Instructions .ROUTE .COMPLEX Rx Instructions: Per MD order Follow up/Referrals: Abimbola Gao MD [Primary Care Provider] - Visit Report/Discharge Packet Stand Alone Forms: Patient Portal/API, Stroke Signs & Symptoms Discharge Data Primary Care Provider: Abimbola Gao
[2024-12-16] MEDS: DOCUSATE 100 MG CAPSULE PO (09:49)
[2024-12-16] MEDS: LANOLIN OINT 7 GM 1 APPLIC TOP (09:49)
[2024-12-16] MEDS: PRENATAL VIT,CALC/IRON/FOLIC 1 TABLET 1 TAB PO (09:49)
[2024-12-16 15:36] VITALS: BP 92/46; PULSE 93; RESP 21; TEMP 36.7
== END 2024-12-16 15:37 | disposition home or self-care (01) | DRG 788 ==
PROVIDERS: Obstetrics & Gynecology; Admitting Provider Family Medicine; PCP Family Medicine; Referring Provider Family Medicine; Visit Provider Family Medicine
PROC: 10D00Z1 Extraction of Products of Conception, Low, Open Approach (ICD-10-PCS; CPT 59514; principal; 2024-12-14 08:15)
DX: O32.8XX0 Maternal care for other malpresentation of fetus, not applicable or unspecified (principal); O62.1 Secondary uterine inertia; O75.81 Maternal exhaustion complicating labor and delivery; Z3A.40 40 weeks gestation of pregnancy; Z37.0 Single live birth; O75.89 Other specified complications of labor and delivery; L40.50 Arthropathic psoriasis, unspecified; O76 Abnormality in fetal heart rate and rhythm complicating labor and delivery
CPT/HCPCS: 36415; 59025; 59050; 85025; 86850; 86900; 86901; 96372; G0378; G0379; J0690; J1100; J1200; J1885; J2270; J2274; J2405; J2590

== ENCOUNTER 2025-04-07 10:45 | Outpatient (RCR) | payer OTHER, SELFPAY ==
--- NOTE | 2025-03-10 08:15 | PT.OIE ---
Current Diagnoses Other specified disorders of muscle (03/10/25) Encounter for delivery without indication (03/10/25) Past Medical History (Last Updated 01/27/25 @ 10:59 by Brigette Alvarez MD) delivery delivered Encounter for fertility planning Pelvic floor dysfunction in female Past Surgical History (Last Updated 04/07/24 @ 10:39 by Sheela Arcos RN) No pertinent past surgical history Visit Care Team Role Provider Type Abimbola Gao MD Family Provider Physician Primary Care Provider Specialty: Family Practice ANIMAL HUSBANDRY TEACHER Address: [address] [place] [address] [place], [address] Email: [email or web address] Brigette Alvarez MD Attending Provider Physician Referring Provider Specialty: ANIMAL HUSBANDRY TEACHER Address: [address] [place] [address], [id number] Email: [email or web address] Physical Therapy Initial Evaluation PT-OP-A Visit Information Start: 03/10/25 08:14 Freq: Status: Active Protocol: Document 03/10/25 08:15 [facility] (Rec: 03/10/25 09:03 [facility] [id number]) Out-Patient Physical Therapy Visit Information Visit Information Visit Type Initial Evaluation Visit Start Time 08:15 Visit Stop Time 09:00 Visit Number 1 Evaluation Information Evaluation Date 03/10/25 PT-OP-B Current Condition Start: 03/10/25 08:14 Freq: Status: Active Protocol: Document 03/10/25 08:15 [facility] (Rec: 03/10/25 09:03 [facility] [id number]) Current Condition History of Current Condition Onset Date Dec 14 2024 Current Complaints decreased sensation to void, pain over scar, core weakness History of Current 29 year old female s/p december 14, baby [place] Condition she feels her bladder hasn't woken up yet and she isn't getting the full urge to go pee she was in labor x 4 days then active labor and she got to 9 cm dilated and baby was coming out sideways and then she needed a c section she is still a little tender to the touch at her c section scar and pressure over the scar bothers her pt has a history of UTI's and is concerned that she is not having the urge to void at this point PT-OP-C Subjective Start: 03/10/25 08:14 Freq: Status: Active Protocol: Document 03/10/25 08:15 [facility] (Rec: 03/11/25 13:57 [facility] [id number]) Patient Questionnaires Pelvic Pain and Urgency/Frequency Patient Symptom Scale Pelvic Pain Score 7 OP-PT Pain Assessment Location abdominal c- section scar Pain Location pain at the c section scar, pain with any pressure or Details rubbing at her scar Pain Intensity 3 Scale Used Numeric (0 - 10) Description Aching,Tightness PT-OP-I Pelvic Floor Start: 03/10/25 08:14 Freq: Status: Active Protocol: Document 03/10/25 08:15 [facility] (Rec: 03/11/25 13:57 [facility] [id number]) Pelvic Floor Assessment Urine Pelvic Floor Surgery No: pt went to 9 cm dilated and then had a c section Other Urinary decreased sensation to void, leakage with cough or Symptoms sneeze Leakage Size Small Leakage Cause Cough,Sneeze Leaks Per Day 1 Pelvic Clock Pelvic Clock 3-6 Tenderness,Tightness Pelvic Clock Other left lateral wall of the levator ani is tight and guarded right transverse perineum is tight and guarded Contraction Ability Voluntary Weak Contraction Voluntary Relaxation Weak Manual Muscle 2 Testing Left Manual Muscle 2 Testing Right Manual Muscle 2 Testing Anterior Manual Muscle 2 Testing Posterior Muscle Endurance ( 3 Seconds) PT-OP-J Posture/Palpation/Skin Start: 03/10/25 08:14 Freq: Status: Active Protocol: Document 03/10/25 08:15 [facility] (Rec: 03/11/25 13:57 [facility] [id number]) Palpation Assessment Location scar Palpation Findings Tenderness Palpation Details scar tissue tightness both proximal and distal to c- section scar, pt was shown how to do self scar tissue mobilization today PT-OP-M Strength Start: 03/10/25 08:14 Freq: Status: Active Protocol: Document 03/10/25 08:15 [facility] (Rec: 03/11/25 13:57 [facility] [id number]) Trunk Strength Trunk Manual Muscle Testing Core Stabilization decreased core activation of the transverse abdominals with and scar tissue adhesions PT-OP-Q Treatments Start: 03/10/25 08:14 Freq: Status: Active Protocol: Document 03/10/25 08:15 [facility] (Rec: 03/10/25 17:33 [facility] [id number]) Therapeutic Exercises Supine Exercises pelvic floor contract relax Reps/Minutes 10 holding 5-10 sec and relaxing 10 sec with ball as a assist modified squat stretch Reps/Minutes hold 30 sec to 1 min happy baby Reps/Minutes hold 30 sec to 1 min Other Exercises viviane pose Reps/Minutes hold 1 min with cues to relax at the sitting bones PT-OP-T Assessment and Plan Start: 03/10/25 08:14 Freq: Status: Active Protocol: Document 03/10/25 08:15 [facility] (Rec: 03/11/25 13:57 [facility] [id number]) Physical Therapy Assessment Rehab Potential Rehabilitation Good Potential Evaluation Complexity Number of Personal 1-2 Factors/ Comorbidities Number of Body 3 Systems Impaired Clinical Evolving Presentation at Evaluation Impairments Impairments Activity Tolerance,Functional Activities,Pain,Posture, Soft Tissue Mobility,Strength Other Impairments scar tissue, pelvic floor weakness with stress incontinence with strong cough or sneeze, core weakness, pelvic floor guarding and tightness, decreased sensation of when she needs to void Goals 3 Impairment pelvic floor weakness with urinary stress incontinence with strong cough or sneeze Short Term Goal (STG Debbie is able to sustain a pelvic floor contraction in ) supine x 10 seconds STG Duration 4 weeks [facility] Goal (LTG) Debbie is able to sustain a pelvic floor contraction in sitting and standing x 5 seconds or better and is no longer experiencing urinary stress incontinence with strong cough or sneeze LTG Duration 8 weeks 2 Impairment scar tissue tightness at the scar with c/o tenderness and pain with anything rubbing on her scar or pressure at her scar as well as decreased sensation to void since surgery [facility] Goal (LTG) Debbie reports a overall reduction of scar tissue pain and is able to work on self scar tissue mobilization for home. She is reporting improved sensation that it is time to void LTG Duration 8 weeks 1 Impairment core weakness Short Term Goal (STG Debbie is educated on a core strengthening ) program STG Duration 4 weeks Assessment Summary Assessment Debbie is a 29 year old female 12 weeks from a delivery 12/14/24. Pt had been in active labor and had progressed to 9 cm dilated before it was decided she required a C section. Her chief complaint at this time is that she is not feeling when she needs to void and due to her history of UTI's she is concerned about not being able to fully empty her bladder. She does describe tenderness along the C- section scar and doesn't like pressure over her scar. She feels she does have a good urinary stream. Debbie describes stress incontinence only with strong cough or sneeze. With evaluation of the pelvic floor today the left lateral wall of the levator ani is guarded and tight and Debbie has difficulty relaxing her pelvic floor. The right side transverse perineal muscle is also tight and tender to palpation. Debbie tests weak in her pelvic floor 2/5 MMT and lacks endurance to sustain a pelvic floor contraction more than a few seconds. With evaluation of the C section scar there is some tightness and scar tissue present. Debbie was shown how to do a self scar tissue mobilization today and she tolerated this well. She was started on stretches for the hips to help relax the pelvic floor and was also started on pelvic floor endurance contractions to start working on improving support for the bladder. Debbie is a good candidate for PT. Physical Therapy Plan Frequency and Duration Frequency of 1x/Week Treatment Duration of 8 treatment (weeks) Plan of Care Start 03/10/25 Date Plan of Care End 05/05/25 Date Next Visit Focus/Plan Next Note Type Treatment Note Next Visit Plan Scar tissue massage over the scar, review stretches for the hips/pelvic floor and begin EMG biofeedback for pelvic floor endurance training, begin transverse abdominal activation in quadruped
--- NOTE | 2025-03-10 10:03 | PT.OPPOC ---
Physical, Occupational & Speech Therapy At [facility] Current Diagnoses Other specified disorders of muscle (03/10/25) Encounter for delivery without indication (03/10/25) Visit Care Team Role Provider Type Abimbola Gao MD Family Provider Physician Primary Care Provider Specialty: Family Practice SHERIFF'S OFFICER Address: [address] [place] [address] [place], [address] Email: [email or web address] Brigette Alvarez MD Attending Provider Physician Referring Provider Specialty: SHERIFF'S OFFICER Address: [address] [place] [address], [place], [address] Email: [email or web address] Plan Of Care PT-OP-B Current Condition Start: 03/10/25 08:14 Freq: Status: Active Protocol: Document 03/10/25 08:15 [facility] (Rec: 03/10/25 09:03 [facility] [id number]) Current Condition History of Current Condition Onset Date Dec 14 2024 Current Complaints decreased sensation to void, pain over scar, core weakness History of Current 29 year old female s/p december 14, baby [place] Condition she feels her bladder hasn't woken up yet and she isn't getting the full urge to go pee she was in labor x 4 days then active labor and she got to 9 cm dilated and baby was coming out sideways and then she needed a c section she is still a little tender to the touch at her c section scar and pressure over the scar bothers her pt has a history of UTI's and is concerned that she is not having the urge to void at this point PT-OP-T Assessment and Plan Start: 03/10/25 08:14 Freq: Status: Active Protocol: Document 03/10/25 08:15 [facility] (Rec: 03/11/25 13:57 [facility] [id number]) Physical Therapy Assessment Rehab Potential Rehabilitation Good Potential Evaluation Complexity Number of Personal 1-2 Factors/ Comorbidities Number of Body 3 Systems Impaired Clinical Evolving Presentation at Evaluation Impairments Impairments Activity Tolerance,Functional Activities,Pain,Posture, Soft Tissue Mobility,Strength Other Impairments scar tissue, pelvic floor weakness with stress incontinence with strong cough or sneeze, core weakness, pelvic floor guarding and tightness, decreased sensation of when she needs to void Goals 3 Impairment pelvic floor weakness with urinary stress incontinence with strong cough or sneeze Short Term Goal (STG Debbie is able to sustain a pelvic floor contraction in ) supine x 10 seconds STG Duration 4 weeks [facility] Goal (LTG) Debbie is able to sustain a pelvic floor contraction in sitting and standing x 5 seconds or better and is no longer experiencing urinary stress incontinence with strong cough or sneeze LTG Duration 8 weeks 2 Impairment scar tissue tightness at the scar with c/o tenderness and pain with anything rubbing on her scar or pressure at her scar as well as decreased sensation to void since surgery Computer Education Professor Goal (LTG) Debbie reports a overall reduction of scar tissue pain and is able to work on self scar tissue mobilization for home. She is reporting improved sensation that it is time to void LTG Duration 8 weeks 1 Impairment core weakness Short Term Goal (STG Debbie is educated on a core strengthening ) program STG Duration 4 weeks Assessment Summary Assessment Debbie is a 29 year old female 12 weeks from a delivery 12/14/24. Pt had been in active labor and had progressed to 9 cm dilated before it was decided she required a C section. Her chief complaint at this time is that she is not feeling when she needs to void and due to her history of UTI's she is concerned about not being able to fully empty her bladder. She does describe tenderness along the C- section scar and doesn't like pressure over her scar. She feels she does have a good urinary stream. Debbie describes stress incontinence only with strong cough or sneeze. With evaluation of the pelvic floor today the left lateral wall of the levator ani is guarded and tight and Debbie has difficulty relaxing her pelvic floor. The right side transverse perineal muscle is also tight and tender to palpation. Debbie tests weak in her pelvic floor 2/5 MMT and lacks endurance to sustain a pelvic floor contraction more than a few seconds. With evaluation of the C section scar there is some tightness and scar tissue present. Debbie was shown how to do a self scar tissue mobilization today and she tolerated this well. She was started on stretches for the hips to help relax the pelvic floor and was also started on pelvic floor endurance contractions to start working on improving support for the bladder. Debbie is a good candidate for PT. Physical Therapy Plan Frequency and Duration Frequency of 1x/Week Treatment Duration of 8 treatment (weeks) Plan of Care Start 03/10/25 Date Plan of Care End 05/05/25 Date Next Visit Focus/Plan Next Note Type Treatment Note Next Visit Plan Scar tissue massage over the scar, review stretches for the hips/pelvic floor and begin EMG biofeedback for pelvic floor endurance training, begin transverse abdominal activation in quadruped Plan of Care Dates Plan of Care Start Date 03/10/25 Plan of Care End Date 05/05/25 Electronically Signed by: Lakesha Mehta, PT 03/12/25 1009 If you are in agreement with this Plan of Care, please return a signed and dated copy. I have reviewed this Plan of Care and certify that the skilled therapy services above are required to meet the patient?s needs. Physician Signature Date Printed Name and Credentials Clinical Instructor Signature Printed Name and Credentials
--- NOTE | 2025-03-31 16:00 | PT.OTN ---
Current Diagnoses Other specified disorders of muscle (03/31/25) Encounter for delivery without indication (03/31/25) Physical Therapy Treatment Note PT-OP-A Visit Information Start: 03/10/25 08:14 Freq: Status: Active Protocol: Document 03/31/25 10:44 [facility] (Rec: 03/31/25 10:51 [facility] [id number]) Out-Patient Physical Therapy Visit Information Visit Information Visit Type Treatment Note Visit Start Time 10:45 Visit Stop Time 11:30 Visit Number 2 PT-OP-B Current Condition Start: 03/10/25 08:14 Freq: Status: Active Protocol: Document 03/10/25 08:15 [facility] (Rec: 03/10/25 09:03 [facility] [id number]) Current Condition History of Current Condition Onset Date Dec 14 2024 Current Complaints decreased sensation to void, pain over scar, core weakness History of Current 29 year old female s/p december 14, baby [place] Condition she feels her bladder hasn't woken up yet and she isn't getting the full urge to go pee she was in labor x 4 days then active labor and she got to 9 cm dilated and baby was coming out sideways and then she needed a c section she is still a little tender to the touch at her c section scar and pressure over the scar bothers her pt has a history of UTI's and is concerned that she is not having the urge to void at this point PT-OP-C Subjective Start: 03/10/25 08:14 Freq: Status: Active Protocol: Document 03/31/25 10:44 [facility] (Rec: 03/31/25 10:51 [facility] [id number]) OP-PT Subjective Patient Comments Patient Comments pt ordered the tape but hasn't tried it yet for her c section scar she has been doing the stretches she has been trying to do the scar massage and she feels that the little she has helped her bladder and she feels that she isn't having to wait as long to get the feeling to void. right sided SI joint pain is with her and it was with her during her around 8 weeks it started PT-OP-I Pelvic Floor Start: 03/10/25 08:14 Freq: Status: Active Protocol: Document 03/10/25 08:15 [facility] (Rec: 03/11/25 13:57 [facility] [id number]) Pelvic Floor Assessment Urine Pelvic Floor Surgery No: pt went to 9 cm dilated and then had a c section Other Urinary decreased sensation to void, leakage with cough or Symptoms sneeze Leakage Size Small Leakage Cause Cough,Sneeze Leaks Per Day 1 Pelvic Clock Pelvic Clock 3-6 Tenderness,Tightness Pelvic Clock Other left lateral wall of the levator ani is tight and guarded right transverse perineum is tight and guarded Contraction Ability Voluntary Weak Contraction Voluntary Relaxation Weak Manual Muscle 2 Testing Left Manual Muscle 2 Testing Right Manual Muscle 2 Testing Anterior Manual Muscle 2 Testing Posterior Muscle Endurance ( 3 Seconds) PT-OP-J Posture/Palpation/Skin Start: 03/10/25 08:14 Freq: Status: Active Protocol: Document 03/10/25 08:15 [facility] (Rec: 03/11/25 13:57 [facility] [id number]) Palpation Assessment Location scar Palpation Findings Tenderness Palpation Details scar tissue tightness both proximal and distal to c- section scar, pt was shown how to do self scar tissue mobilization today PT-OP-M Strength Start: 03/10/25 08:14 Freq: Status: Active Protocol: Document 03/10/25 08:15 [facility] (Rec: 03/11/25 13:57 [facility] [id number]) Trunk Strength Trunk Manual Muscle Testing Core Stabilization decreased core activation of the transverse abdominals with and scar tissue adhesions PT-OP-Q Treatments Start: 03/10/25 08:14 Freq: Status: Active Protocol: Document 03/31/25 10:44 [facility] (Rec: 03/31/25 11:23 [facility] [id number]) Therapeutic Exercises Supine Exercises pelvic floor long holds Reps/Minutes hold 10 seconds and relax x 10 seconds x 10 reps piriformis stretch Equipment Used hold 1-2 min pelvic floor resting ton Supine Exercise Name 2.9 uv pelvic floor contract relax Reps/Minutes 10 sec hold 10 sec relaxation Comments 18.1 40.1 modified squat stretch Reps/Minutes hold 30 sec to 1 min happy baby Reps/Minutes hold 30 sec to 1 min Other Exercises viviane pose Reps/Minutes hold 1 min with cues to relax at the sitting bones Manual Therapy Treatment Consent Patient gave verbal Yes consent for manual treatment Self-Care/Home Management Treatment Education Other Education education on body mechanics for picking up car seat PT-OP-T Assessment and Plan Start: 03/10/25 08:14 Freq: Status: Active Protocol: Document 03/31/25 10:44 [facility] (Rec: 03/31/25 10:51 [facility] [id number]) Physical Therapy Assessment Goals 3 Impairment pelvic floor weakness with urinary stress incontinence with strong cough or sneeze Short Term Goal (STG Debbie is able to sustain a pelvic floor contraction in ) supine x 10 seconds STG Duration 4 weeks Nursing Home Goal (LTG) Debbie is able to sustain a pelvic floor contraction in sitting and standing x 5 seconds or better and is no longer experiencing urinary stress incontinence with strong cough or sneeze LTG Duration 8 weeks 2 Impairment scar tissue tightness at the scar with c/o tenderness and pain with anything rubbing on her scar or pressure at her scar as well as decreased sensation to void since surgery Nursing Home Goal (LTG) Debbie reports a overall reduction of scar tissue pain and is able to work on self scar tissue mobilization for home. She is reporting improved sensation that it is time to void LTG Duration 8 weeks 1 Impairment core weakness Short Term Goal (STG Dbebie is educated on a core strengthening ) program STG Duration 4 weeks Assessment Summary Assessment Debbie is showing good progress with her HEP, I did work on the scar today and the fascial mobility is doing better. Pelvic floor long holds with EMG biofeedback were started today and pt tolerated this well. She has difficulty sustaining a pelvic floor contraction x 10 seconds Physical Therapy Plan Frequency and Duration Frequency of 1x/Week Treatment Duration of 8 treatment (weeks) Plan of Care Start 03/10/25 Date Plan of Care End 05/05/25 Date Next Visit Focus/Plan Next Note Type Treatment Note Next Visit Plan continue with EMG biofeeback for pelvic floor training and enduranc training
--- NOTE | 2025-04-02 10:45 | PT.OTN ---
Current Diagnoses Other specified disorders of muscle (04/02/25) Encounter for delivery without indication (04/02/25) Physical Therapy Treatment Note PT OP: Pelvic Health Start: 04/01/25 13:29 Freq: Status: Active Protocol: Document 04/02/25 09:49 [facility] (Rec: 04/02/25 10:44 [facility] [id number]) Out-Patient Physical Therapy Visit Information Visit Information Visit Type Treatment Note Visit Start Time 09:49 Visit Stop Time 10:30 Visit Number 3 OP-PT Subjective Patient Comments Patient Comments pt has been using the scar tap for her insicion, she has not experienced any leakage, back is feeling pretty good today Therapeutic Exercises Supine Exercises hooklyng hip abduction with theraband Reps/Minutes 2 x 10 reps level 3 supine TA with march Reps/Minutes x 10 reps pelvic floor long holds Supine Exercise Name with ball Reps/Minutes hold 10 seconds and relax x 10 seconds x 10 reps piriformis stretch Equipment Used hold 1-2 min pelvic floor resting ton Supine Exercise Name 4 pelvic floor contract relax Reps/Minutes 10 sec hold 10 sec relaxation Comments 13 uv modified squat stretch Reps/Minutes hold 30 sec to 1 min Manual Therapy Treatment Consent Patient gave verbal Yes consent for manual treatment Soft Tissue Mobilization C section scar mobilization Mobilization Type Myofascial Release Comments scar tissue mobilization, pt did have the tape over her incision today so I worked above and below, decreased scar tissue noted today Physical Therapy Assessment Rehab Potential Rehabilitation Good Potential Goals 3 Impairment pelvic floor weakness with urinary stress incontinence with strong cough or sneeze Short Term Goal (STG Debbie is able to sustain a pelvic floor contraction in ) supine x 10 seconds STG Duration 4 weeks Intermediate Goal (LTG) Debbie is able to sustain a pelvic floor contraction in sitting and standing x 5 seconds or better and is no longer experiencing urinary stress incontinence with strong cough or sneeze LTG Duration 8 weeks 2 Impairment scar tissue tightness at the scar with c/o tenderness and pain with anything rubbing on her scar or pressure at her scar as well as decreased sensation to void since surgery Well Cleaner Goal (LTG) Debbie reports a overall reduction of scar tissue pain and is able to work on self scar tissue mobilization for home. She is reporting improved sensation that it is time to void LTG Duration 8 weeks 1 Impairment core weakness Short Term Goal (STG Debbie is educated on a core strengthening ) program STG Duration 4 weeks Assessment Summary Assessment I added in TA with october for Debbie as well as hooklying hip abduction with theraband she did well with these. Resting tone of the pelvic floor is still elevated. Debbie felt she needed to place pressure down through her pelvic floor to fully relax. We discussed taking time to void and to avoid straining. She is working on her body mechanics with lifting the car seat Physical Therapy Plan Frequency and Duration Frequency of 1x/Week Treatment Duration of 8 treatment (weeks) Plan of Care Start 03/10/25 Date Plan of Care End 05/05/25 Date Next Visit Focus/Plan Next Note Type Treatment Note Next Visit Plan continue with EMG biofeeback for pelvic floor training and enduranc training
--- NOTE | 2025-05-14 16:41 | PT.OPDS ---
Current Diagnoses Other specified disorders of muscle (04/07/25) Encounter for delivery without indication (04/07/25) Visit Care Team Role Provider Type Abimbola Gao MD Family Provider Physician Primary Care Provider Specialty: Family Practice [employer] [address] [place], [address] Email: [email or web address] Brigette Alvarez MD Attending Provider Physician Referring Provider Specialty: [employer] Address: [address] [place] [address], [address], [place], [address] Email: [email or web address] Visit Number Visit Number 4 Discharge Summary PT OP: Pelvic Health Start: 04/01/25 13:29 Freq: Status: Active Protocol: Document 05/14/25 16:39 [facility] (Rec: 05/14/25 16:41 [facility] [id number]) Physical Therapy Assessment Goals 3 Impairment pelvic floor weakness with urinary stress incontinence with strong cough or sneeze Short Term Goal (STG Debbie is able to sustain a pelvic floor contraction in ) supine x 10 seconds goal met STG Duration 4 weeks Custodial Goal (LTG) Debbie is able to sustain a pelvic floor contraction in sitting and standing x 5 seconds or better and is no longer experiencing urinary stress incontinence with strong cough or sneeze LTG Duration 8 weeks 2 Impairment scar tissue tightness at the scar with c/o tenderness and pain with anything rubbing on her scar or pressure at her scar as well as decreased sensation to void since surgery Custodial Goal (LTG) Debbie reports a overall reduction of scar tissue pain and is able to work on self scar tissue mobilization for home. She is reporting improved sensation that it is time to void good progress LTG Duration 8 weeks 1 Impairment core weakness Short Term Goal (STG Debbie is educated on a core strengthening ) program goal met STG Duration 4 weeks Assessment Summary Assessment Debbie has not been seen since 04/07/25. At the time of her last visit she was doing better overall and leakage had decreased. She was not able to make her last visit in PT. At this point she will be discharged to a [facility] Physical Therapy Plan Discharge Physical Therapy Discharge Reasons No Longer Attending PT
== END 2025-05-18 10:23 | disposition home or self-care (01) ==
LOC: PHYS 10:45
PROVIDERS: Family Provider Family Medicine; PCP Family Medicine; Referring Provider Obstetrics & Gynecology; Visit Provider Obstetrics & Gynecology
DX: M62.89 Other specified disorders of muscle (principal); O82 Encounter for cesarean delivery without indication
CPT/HCPCS: 97110; 97140; 97162